=== PATIENT | female | born 1985 | race African-American/Black ===

== ENCOUNTER 2016-07-22 12:40 | Observation (INO) | payer MEDICAID ==
[~2016-07-22] VITALS: Ht 165.1 cm; Wt 61.2 kg
[2016-07-22] MEDS ORDERED: LACTATED RINGER'S 1,000 ML IV ONE (14:08)
[2016-07-22] MEDS: TERBUTALINE SULFATE 1 MG/ML 1ML VIAL SC SCH ×3 (14:40→16:30)
== END 2016-07-22 17:45 | disposition home or self-care (01) | DRG 566 ==
LOC: LDRP 12:40
PROVIDERS: ADMIT Specialist; ATTEND Specialist
DX: O26.893 Other specified pregnancy related conditions, third trimester (principal); R10.9 Unspecified abdominal pain; Z3A.28 28 weeks gestation of pregnancy
CPT/HCPCS: 59025; 76815; 81002; 96360; 96361; 96372; G0378; G0434; J3105; 96366

== ENCOUNTER 2018-06-15 21:51 | Emergency (ER) | payer MEDICAID, OTHER ==
[~2018-06-15] VITALS: Ht 165.1 cm; Wt 52.2 kg
[2018-06-16] MEDS ORDERED: methylPREDNISolone SOD SUCC 125 MG/2 ML VL IM ONE
[2018-06-16] MEDS ORDERED: LACTULOSE 20Gm/30ML SOLN PO ONE
[2018-06-16] MEDS ORDERED: cefTRIAXone 1GM/50ML D5W 50 ML IV ONE
[2018-06-16] MEDS ORDERED: cefTRIAXone SOD 1,000 MG VL IM ONE (00:15)
[2018-06-16 02:00] VITALS: BP 128/90
== END 2018-06-16 02:02 | disposition home or self-care (01) ==
LOC: ER 21:56
DX: J06.9 Acute upper respiratory infection, unspecified (principal); K59.00 Constipation, unspecified
CPT/HCPCS: 74018; 96372; 99283; J0696; J2930